=== PATIENT | male | born 1980 | race Caucasian/White ===

== ENCOUNTER 2016-11-03 11:37 | Emergency (ER) | payer MEDICAID, OTHER ==
[2016-11-03] MEDS ORDERED: MAGNESIUM SULFATE IN WATER 50 ML IV ONE (12:35)
[2016-11-03] MEDS ORDERED: SUMAtriptan SUCCINATE 6 MG/0.5 ML VIAL SC ONE (12:37)
[2016-11-03] MEDS ORDERED: ONDANSETRON 4 MG TAB.RAPDIS ONE (12:38)
[2016-11-03] MEDS: ONDANSETRON 4 MG TAB.RAPDIS PO ONE (12:40)
[2016-11-03] MEDS: SUMAtriptan SUCCINATE 6 MG/0.5 ML VIAL SC ONE (12:40)
--- NOTE | 2016-11-03 12:40 | ERNOTE ---
Headache ER HPI - Narrative Date of Service: 11/03/16 - General Presenting Symptoms: headache, "migraine", other - States worst headache of his life. Time Seen by Provider: 11/03/16 12:18 Source: patient, family Exam Limitations: no limitations - Immun/Allergies/Home Medications Immunizations: IMMUNIZATION HX Immunizations Up to Date Yes History of Influenza Vaccine Yes Hx Pneumococcal Vaccination Yes Allergies/Adverse Reactions: Allergies tramadol Adverse Reaction (Severe, Verified 11/03/16 11:55) Other codeine Adverse Reaction (Verified 11/03/16 11:55) ketorolac tromethamine [From Toradol] Adverse Reaction (Verified 11/03/16 11:55) Hives prochlorperazine edisylate [From Compazine] Adverse Reaction (Verified 11/03/16 11:55) prochlorperazine maleate [From Compazine] Adverse Reaction (Verified 11/03/16 11 :55) Home Medications: HOME MEDICATIONS Ibuprofen [Motrin] 800 mg PO QID PRN 02/09/14 [Last Taken Unknown] clonazePAM [Klonopin] 1 mg PO TID PRN 02/09/14 [Last Taken Unknown] HYDROcodone/ACETAMINOPHEN [Hydrocodon-Acetaminoph 7.5-325] 1 each PO QID PRN 2 Days #8 tablet 11/03/16 [Last Taken Unknown] Ondansetron HCl [Zofran] 4 mg PO Q6H PRN 3 Days #12 tablet 11/03/16 [Last Taken Unknown] - Pain Pain Score: 10 - History of Present Illness Narrative: States 5 days ago he had a CT myelogram of the neck and has had a headache since then. No relief. Activity at onset: other - Spinal Timing of Headache: abrupt, constant, worse Quality: Present: sharp, throbbing Severity Maximum: Present: severe Severity-Currently: Present: severe Headache frequency: Present: other - History of migraines yrs ago. No recent headaches until the myelogram Associated Symptoms: Reports: nausea, vomiting, dizziness Exacerbated by:: Reports: light, noise Review of Systems - Review of Systems Constitutional: Present: decreased activity level EYE: Present: no symptoms reported ENT: Present: no symptoms reported Respiratory: Present: no symptoms reported Cardiology: Present: no symptoms reported Gastrointestinal/Abdominal: Present: nausea Musculoskeletal: Present: no symptoms reported Skin: Present: no symptoms reported Neurological: Present: headache - Worst of his life Endocrine: Present: no symptoms reported Hematologic/Lymphatic: Present: no symptoms reported - Patient's Past Medical History Patient History - Medical: No pertinent hx, Seizures Patient History - Cardiac/Respiratory: No pertinent hx Patient History - Cancer: No Hx of Cancer Patient History - Surgical Procedures: Appendectomy, Other Patient History - Other: None - Family History Mother Family History - Medical: No pertinent hx Father Family History - Medical: , Seizures Family History - Cardiac/Respiratory: Myocardial Infarction - Social History Living Situations: home Abuse History: No History of abuse Psych History: No pertinent hx Smoking Status: Current every day smoker Alcohol Use: none Drug Use: none - Immunizations Immunizations Up to Date: Yes Hx Pneumococcal Vaccination: Yes History of Influenza Vaccine: Yes Physical Exam - Physical Exam General Appearance: Present: wd/wn, alert, no apparent distress Head Exam: Present: normal inspection, no evidence of injury, no tenderness w palpation Eye Exam: Normal inspection: bilateral Ears, Nose, Throat: Present: normal ENT inspection, normal pharynx Neck: Present: normal inspection, nontender, supple Respiratory: Present: no respiratory distress, normal breath sounds, no accessory muscle use, chest nontender, lungs clear Cardiovascular/Chest: Present: regular rate, rhythm, no murmur, normal peripheral pulses Peripheral Pulses: N=norm/S=strong/W=weak/B=bound/A=absent: Radial (R): Normal, Radial (L): Normal Gastrointestinal/Abdominal: Present: normal bowel sounds, nontender, nondistended, soft Back Exam: Present: normal inspection, no CVA tenderness, no vertebral tenderness Extremity Exam: Present: normal inspection, normal range of motion Neurological Exam: Present: alert, oriented, normal mood/affect, no motor/ sensory deficits Skin Exam: Present: warm/dry, other - Spot of spinal is W/D. No drainage. No erythema or induration. ED Progress - Results and Orders Patient's Lab Results:: I have reviewed the patient's lab results. - Vital Signs Patient's Vital Signs:: I have reviewed the patient's vital signs. Vital Signs: Vital Signs 11/03/16 11:47 Temperature 37.0 C Pulse Rate 70 Respiratory 16 Rate Blood Pressure 101/78 O2 Sat by Pulse 99 Oximetry - CT/Ultrasound CT/Ultrasound Narrative: No acute findings. - Progress/Reassessment Chief Complaint: Headache Progress:: Improved - Will try morphine - Fentanyl 100 MCG IV - Haldol 2mg PO. Progress Note-Subjective: 11/03/16 15:13 States his pain is down to a 7/10. States he would not consider a blood patch so no need to call anesthesia. 11/03/16 15:54 States he is starting to feel some better but has not resolved completely. Again insisting he will not accept any intervention from anesthesia. Departure Clinical Impression: Headache after spinal puncture - Departure Disposition: Home Follow Up Needed Condition: Good Instructions: Spinal Headache Additional Instructions: Despite our interventions, you may continue some some headache until you can be evaluated by your surgeon. If you change your mind on having anesthesia evaluate the possibility of a blood patch let us know. Otherwise continue the tylenol/motrin and you may consider a caffeine pill. Monitor the amount of tylenol you take. The pain medication may make you drowsy so take with caution. Follow up on Saturday as planned with your provider. If you worsen let us know. Prescriptions: HYDROcodone/ACETAMINOPHEN [Hydrocodon-Acetaminoph 7.5-325] 1 each PO QID PRN 2 Days #8 tablet PRN Reason: Pain Ondansetron HCl [Zofran] 4 mg PO Q6H PRN 3 Days #12 tablet PRN Reason: Nausea
[2016-11-03 12:44] LABS: Hematocrit 40.2 % (42.0-52.0); Hemoglobin 13.7 gm/dL (13.5-18.0); Mean Corpuscular Hgb Conc 34.1 g/dl (32-36); Mean Platelet Volume 10.2 fl (6.0-9.5); Neutrophil # 3.9 K/mm3 (1.3-6.0); Neutrophil % 59.1 % (42-75.0); Platelet Count 213 K/mm3 (150-450); Red Blood Count 4.57 M/mm3 (4.7-6.0); Red Cell Distribution Width 12.9 % (11.5-14.0); White Blood Count 6.6 K/mm3 (4.0-10.5)
[2016-11-03] MEDS: NORMAL SALINE 1,000 ML IV ONE (12:57)
[2016-11-03] MEDS: MAGNESIUM SULFATE 8 MEQ in DEXTROSE 5 % IN WATER 50 ML IV ONE ×2 (12:57)
[2016-11-03] MEDS ORDERED: MORPHINE SULFATE 4 MG/ML SYRG ONE (14:00)
[2016-11-03] MEDS: MORPHINE SULFATE 4 MG/ML SYRG IV ONE (14:02)
[2016-11-03] MEDS ORDERED: fentaNYL CITRATE/PF 50 MCG/ML AMPUL ONE (14:39)
[2016-11-03] MEDS: fentaNYL CITRATE/PF 50 MCG/ML AMPUL IV ONE (14:40)
[2016-11-03] MEDS: HALOPERIDOL 1 MG TABLET PO ONE (15:19)
[2016-11-03 15:48] VITALS: BP 99/81
== END 2016-11-03 16:11 | disposition home or self-care (01) ==
LOC: ER 11:37
DX: G97.1 Other reaction to spinal and lumbar puncture (principal); F17.200 Nicotine dependence, unspecified, uncomplicated

== ENCOUNTER 2016-12-28 17:20 | Emergency (ER) | payer OTHER ==
[2016-12-28 17:33] VITALS: BP 118/72
[2016-12-28] MEDS ORDERED: HYDROmorphone HCL 2 MG/ML VIAL IM ONE (18:31)
[2016-12-28] MEDS ORDERED: HYDROmorphone HCL 2 MG/ML VIAL ONE (18:37)
--- NOTE | 2016-12-28 18:43 | ERNOTE ---
Medical Problem HPI - Narrative Date of Service: 12/28/16 - General Chief Complaint: Neck Pain/Injury Time Seen by Provider: 12/28/16 18:02 Source: patient Exam Limitations: no limitations - Immun/Allergies/Home Medications Immunizations: IMMUNIZATION HX Immunizations Up to Date Yes History of Influenza Vaccine Yes Hx Pneumococcal Vaccination Yes Allergies/Adverse Reactions: Allergies tramadol Adverse Reaction (Severe, Verified 12/28/16 17:33) Other codeine Adverse Reaction (Verified 12/28/16 17:33) ketorolac tromethamine [From Toradol] Adverse Reaction (Verified 12/28/16 17:33) Hives prochlorperazine edisylate [From Compazine] Adverse Reaction (Verified 12/28/16 17:33) prochlorperazine maleate [From Compazine] Adverse Reaction (Verified 12/28/16 17 :33) Home Medications: HOME MEDICATIONS Ibuprofen [Motrin] 800 mg PO QID PRN 02/09/14 [Last Taken Unknown] clonazePAM [Klonopin] 1 mg PO TID PRN 02/09/14 [Last Taken Unknown] Ondansetron HCl [Zofran] 4 mg PO Q6H PRN 3 Days #12 tablet 11/03/16 [Last Taken Unknown] Cyclobenzaprine HCl [Flexeril] 10 mg PO TID PRN #30 tab 12/28/16 [Last Taken Unknown] Diclofenac Sodium [Voltaren] 75 mg PO BID #60 tab 12/28/16 [Last Taken Unknown] Lidocaine [Lidoderm 5%] 1 patch TP DAILY PRN #30 patch 12/28/16 [Last Taken Unknown] - History of Present History Narrative: Pt. comes in with c/o neck pain for months that has worsened steadily since he had surgery three months ago. Pt. 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 Pt. has seen Dr Lundy for this pain who referred him to neurology who referred him to ortho-spine at [facility] who he has an appointment with next week. Review of Systems - Review of Systems Constitutional: Present: no symptoms reported. Absent: recent illness, fever, chills, weakness, fatigue, malaise EYE: Present: no symptoms reported ENT: Present: no symptoms reported Respiratory: Present: no symptoms reported. Absent: shortness of breath, cough , wheezing Cardiology: Present: no symptoms reported. Absent: chest pain, palpitations, edema Gastrointestinal/Abdominal: Present: no symptoms reported. Absent: nausea, vomiting, diarrhea Genitourinary: Present: no symptoms reported Musculoskeletal: Present: no symptoms reported. Absent: back pain, joint pain Skin: Present: no symptoms reported. Absent: rash, change in color Neurological: Present: no symptoms reported. Absent: headache, dizziness/light- headedness, numbness, tingling Endocrine: Present: no symptoms reported Hematologic/Lymphatic: Present: no symptoms reported All Other Systems: All systems neg except as marked - Patient's Past Medical History Patient History - Medical: Chronic Pain, Migraines, Seizures Patient History - Cardiac/Respiratory: No pertinent hx Patient History - Cancer: No Hx of Cancer Patient History - Surgical Procedures: Appendectomy, Other Patient History - Other: None - Family History Mother Family History - Medical: No pertinent hx Father Family History - Medical: , Seizures Family History - Cardiac/Respiratory: Myocardial Infarction - Social History Living Situations: home Abuse History: No History of abuse Psych History: No pertinent hx - Immunizations Immunizations Up to Date: Yes Hx Pneumococcal Vaccination: Yes History of Influenza Vaccine: Yes Physical Exam - Physical Exam General Appearance: Present: wd/wn, alert, no apparent distress Head Exam: Present: normal inspection, no evidence of injury Eye Exam: Normal inspection: bilateral, PERRL: bilateral, EOMI: bilateral Neck: Present: tender lateral - R lateral Respiratory: Present: no respiratory distress, normal breath sounds, no accessory muscle use, chest nontender, lungs clear Cardiovascular/Chest: Present: regular rate, rhythm, no murmur, normal peripheral pulses Extremity Exam: Present: normal inspection, non-tender, normal range of motion, no edema Neurological Exam: Present: alert, oriented, normal mood/affect, motor weakness - RUE / ED Progress - Date and Time Seen: Date and Time: 12/28/16 18:42 As pt. has had multiple CTs MRIs and xrays since surgery without any new injury feel that there is no need for new imaging. 12/28/16 Discussed pain control options with pt. and he swears he is not an addict although he has been to several providers and has been on narcotics for years, I am not comfortable sending pt. home on Narcotics so will try a multimodality approach for pt. pain. - Vital Signs Patient's Vital Signs:: I have reviewed the patient's vital signs. Vital Signs: Vital Signs 12/28/16 17:29 Temperature 36.7 C Pulse Rate 81 Respiratory 12 Rate Blood Pressure 118/72 O2 Sat by Pulse 98 Oximetry - Progress/Reassessment Chief Complaint: Neck Pain/Injury Progress:: Improved Departure Clinical Impression: Neck pain - Departure Disposition: Home self-care Condition: Good Instructions: Chronic Pain Additional Instructions: Please follow up with [facility] as planned Prescriptions: Cyclobenzaprine HCl [Flexeril] 10 mg PO TID PRN #30 tab PRN Reason: MUSCLE SPASMS Diclofenac Sodium [Voltaren] 75 mg PO BID #60 tab Lidocaine [Lidoderm 5%] 1 patch TP DAILY PRN #30 patch PRN Reason: Pain
[2016-12-28] MEDS ORDERED: MORPHINE SULFATE 4 MG/ML SYRG IM ONE (19:24)
[2016-12-28] MEDS ORDERED: MORPHINE SULFATE 4 MG/ML SYRG ONE (19:27)
== END 2016-12-28 20:05 | disposition home or self-care (01) ==
LOC: ER 17:20
DX: M54.2 Cervicalgia (principal); G89.29 Other chronic pain